=== PATIENT | female | born 1990 | race Caucasian/White ===

== ENCOUNTER 2018-07-24 08:09 | Observation (INO) ==
[2018-07-24 09:43] LABS: Mean Cell Volume 93.8 fl (78-100); Mean Corpuscular Hemoglobin 31.3 pg (27-31); Mean Corpuscular Hgb Conc 33.3 g/dl (32-36); Mean Platelet Volume 9.5 fl (8-12.5); Neutrophil # 7.6 K/mm3 (1.3-6.0); Neutrophil % 74.9 % (42-75.0); Platelet Count 188 K/mm3 (150-450); Red Blood Count 3.84 M/mm3 (4.2-5.4); Red Cell Distribution Width 13.3 % (11.5-14.0); White Blood Count 10.1 K/mm3 (4.0-10.5)
[2018-07-24 09:51] LABS: Cocaine Ur Negative (NEGATIVE); Urine Barbiturate Negative (NEGATIVE); Urine Benzodiazepines Negative (NEGATIVE); Urine Opiates Negative (NEGATIVE); Urine PCP Negative (NEGATIVE); Urine THC Negative (NEGATIVE)
[2018-07-24 09:56] LABS: Albumin * 2.7 gm/dl (3.4-5.0); Anion Gap 11.2 mmol/L (6.8-13.8); BUN/Creatinine Ratio 20.8 (9.0-21.6); Bilirubin, Total 0.3 mg/dL (0.0-1.1); Ca. Corrected For Albumin 9.3 mg/dL (8.4-10.2); Calcium * 8.6 mg/dL (7.9-10.9); Carbon Dioxide 25.5 mmol/L (24-32.6); Potassium 3.7 mmol/L (3.4-4.6); Total Protein 6.9 gm/dL (6.2-8.2)
[2018-07-24 10:09] LABS: Random Urine Total Protein Less than 6.0 mg/dL (0-12)
[2018-07-24 10:34] LABS: Urine Appearance Clear (CLEAR); Urine Bilirubin Negative (NEGATIVE); Urine Blood Negative /ul (NEGATIVE); Urine Color Yellow; Urine Ketone Negative (NEGATIVE)
[2018-07-24 10:35] LABS: Urine Nitrite Negative (NEGATIVE); Urine Protein Negative (NEGATIVE); Urine Specific Gravity 1.005 SP.GR. (1.005-1.010); Urine Urobilinogen Normal (NORMAL)
[2018-07-24 10:36] LABS: Urine Bacteria None Seen; Urine RBC None Seen /hpf (0-5); Urine WBC None Seen /hpf (0-5)
--- NOTE | 2018-07-24 11:22 | HP ---
Chief Complaint - Chief Complaint Date of Service: 07/24/18 Time of Service: 11:05 Chief Complaint: vaginal spotting History of Present Illness: Pt is a 28y/o @ 30.4 wks that had spotting while at work today. She denies recent intercourse, contractions, headache, blurry vision, epigastric pain, edema. Her has been complicated by CHTN noted by elevated BP's at her 8wk visit and 13 wk visit. Medical History (Last Reviewed 07/24/18 @ 08:18 by Desi Gonzalez RN) No significant past medical history Surgical History: Surgical History (Last Reviewed 07/24/18 @ 08:18 by Desi Gonzalez RN) History of tonsillectomy Onset Date: ~2004 Loss of teeth due to extraction Onset Date: ~09/2017 Family History: Family History (Last Reviewed 07/24/18 @ 08:18 by Desi Gonzalez RN) Mother Anxiety Bipolar disorder Ovarian cyst Hypertension Thyroid disease Father Unknown family medical history Grandmother Cancer maternal- ovarian cancer Social History: Preferred Language Malian Smoking Status Former smoker Have you smoked in the past 12 Yes months Do you dip or chew tobacco No Alcohol Use none Drug Use none (Last Updated 07/11/18 @ 16:55 by Aydee Augustin MD) No Social History Section defined Review Of Systems (GEN) - Review of Systems EENTM: Present: No Symptoms Reported Respiratory: Present: No Symptoms Reported Cardiac: Present: No Symptoms Reported Abdominal: Present: No Symptoms Reported, Other - active movement Genitourinary: Present: No Symptoms Reported Musculoskeletal: Present: No Symptoms Reported Neurological: Present: No Symptoms Reported Skin: Present: No Symptoms Reported Endocrine: Present: No Symptoms Reported Immunizations: IMMUNIZATION HX Immunizations Up to Date Yes History of Influenza Vaccine Yes Hx Pneumococcal Vaccination No Allergies/Adverse Reactions: Allergies Allergy/AdvReac Type Severity Reaction Status Date / Time Penicillins Allergy Hives Verified 07/24/18 08:18 shellfish derived Allergy Swelling Verified 07/24/18 08:18 of Throat Home Medications: HOME MEDICATIONS acetaminophen 325 mg capsule 325 mg PO Q6H PRN 02/16/18 [Last Taken 07/24/18 06:45] diphenhydramine 25 mg capsule 25 mg PO HS PRN 02/16/18 [Last Taken 07/23/18 19:00] vitamin,calcium,gotnmfxf-zpfi-wzxry acid tablet 1 tab PO DAILY 02/16/18 [Last Taken 07/23/18 19:00] Exam - Exam Vital Signs: Vital Signs - Last Taken Temp 36.7 C 07/24/18 08:40 Pulse 91 07/24/18 08:40 Resp 18 07/24/18 08:40 BP 176/85 H 07/24/18 08:40 Pulse Ox 93 07/24/18 08:40 Constitutional: Present: Alert, Oriented x3, Cooperative, Well developed, No distress, Morbidly obese Neck: Present: non-tender, full range of motion, supple Back Exam: Present: normal inspection Respiratory: Present: chest non-tender, lungs clear, normal breath sounds, no respiratory distress Cardiovascular/Chest: Present: normal peripheral pulses, regular rate, rhythm, no edema Abdomen: Present: Normal bowel sounds, soft, nontender, nondistended, no rebound tenderness, obese /Rectal: Present: External genitalia normal, Other - no blood noted Extremity: Present: non-tender, no calf tenderness, lower extremity edema, swelling Neurologic: Present: no motor/sensory deficits, alert, normal mood/affect, oriented x 3 Appearance: Present: appropriate appearance, appropriate insight, neat Eye contact: Present: cooperative, good eye contact, normal speech Thoughts: Present: normal thought pattern Diagnostic Studies: Abnormal Lab Results 07/24/18 07/24/18 07/24/18 Range/Units 09:38 09:38 09:38 RBC 3.84 L (4.2-5.4) M/mm3 Hgb 12.0 L (12.5-16.0) gm/dL Hct 36.0 L (37.0-47.0) % MCH 31.3 H (27-31) pg Immature Gran % (Auto) 0.60 H (0.001-0.429) % Immature Gran # (Auto) 0.06 H (0.000-0.0310) K/mm3 Lymphocytes % 16.3 L (20-51) % Neutrophils # 7.6 H (1.3-6.0) K/mm3 Est GFR (Non-Af Amer) 165 H (60-130) mL/min ALT 95 H (19-67) U/L Albumin 2.7 L (3.4-5.0) gm/dl Ur Random Creatinine 3.4 L (60-200) mg/dL U [place] Prot/Creat Ratio 1765 H (0-199) mg/gm Laboratory Results WBC 10.1 K/mm3 (4.0-10.5) 07/24/18 09:38 RBC 3.84 M/mm3 (4.2-5.4) L 07/24/18 09:38 Hgb 12.0 gm/dL (12.5-16.0) L 07/24/18 09:38 Hct 36.0 % (37.0-47.0) L 07/24/18 09:38 MCV 93.8 fl (78-100) 07/24/18 09:38 MCH 31.3 pg (27-31) H 07/24/18 09:38 MCHC 33.3 g/dl (32-36) 07/24/18 09:38 RDW 13.3 % (11.5-14.0) 07/24/18 09:38 Plt Count 188 K/mm3 (150-450) 07/24/18 09:38 MPV 9.5 fl (8-12.5) 07/24/18 09:38 Immature Gran % (Auto) 0.60 % (0.001-0.429) H 07/24/18 09:38 Immature Gran # (Auto) 0.06 K/mm3 (0.000-0.0310) H 07/24/18 09:38 Neutrophils % 74.9 % (42-75.0) 07/24/18 09:38 Lymphocytes % 16.3 % (20-51) L 07/24/18 09:38 Monocytes % 7.7 % (0.0-9) 07/24/18 09:38 Eosinophils % 0.1 % (0.0-3.0) 07/24/18 09:38 Basophils % 0.4 % (0.0-1.0) 07/24/18 09:38 Nucleated RBC % 0.0 k/mm3 (0-1) 07/24/18 09:38 Neutrophils # 7.6 K/mm3 (1.3-6.0) H 07/24/18 09:38 Lymphocytes # 1.64 k/mm3 (1.5-3.5) 07/24/18 09:38 Monocytes # 0.8 k/mm3 (0.0-1.0) 07/24/18 09:38 Eosinophils # 0.0 k/mm3 (0.0-0.7) 07/24/18 09:38 Absolute Basophils 0.0 k/mm3 (0.0-0.1) 07/24/18 09:38 Sodium 136 mmol/L (132-142) 07/24/18 09:38 Plasma Sodium 136 mmol/L (130-142) 07/24/18 09:38 Potassium 3.7 mmol/L (3.4-4.6) 07/24/18 09:38 Chloride 103 mmol/L (97-106) 07/24/18 09:38 Carbon Dioxide 25.5 mmol/L (24-32.6) 07/24/18 09:38 Anion Gap 11.2 mmol/L (6.8-13.8) 07/24/18 09:38 BUN 10 mg/dL (3-23) 07/24/18 09:38 Creatinine 0.48 mg/dL (0.4-1.4) 07/24/18 09:38 Est GFR (Non-Af Amer) 165 mL/min (60-130) H 07/24/18 09:38 BUN/Creatinine Ratio 20.8 (9.0-21.6) 07/24/18 09:38 Random Glucose 77 mg/dL (70-110) 07/24/18 09:38 Calcium 8.6 mg/dL (7.9-10.9) 07/24/18 09:38 Calcium Adj for Albumin 9.3 mg/dL (8.4-10.2) 07/24/18 09:38 Total Bilirubin 0.3 mg/dL (0.0-1.1) 07/24/18 09:38 AST 38 U/L (0-48) 07/24/18 09:38 ALT 95 U/L (19-67) H 07/24/18 09:38 Alkaline Phosphatase 88 U/L (50-170) 07/24/18 09:38 Total Protein 6.9 gm/dL (6.2-8.2) 07/24/18 09:38 Albumin 2.7 gm/dl (3.4-5.0) L 07/24/18 09:38 Urine Color Yellow 07/24/18 10:12 Urine Appearance Clear (CLEAR) 07/24/18 10:12 Urine pH 7.0 pH (5.0-7.0) 07/24/18 10:12 Ur Specific [place] 1.005 SP.GR. (1.005-1.010) 07/24/18 10:12 Urine Protein Negative mg/dL (NEGATIVE) 07/24/18 10:12 Urine Glucose (UA) Negative mg/dL (NEGATIVE) 07/24/18 10:12 Urine Ketones Negative mg/dL (NEGATIVE) 07/24/18 10:12 Urine Blood Negative /ul (NEGATIVE) 07/24/18 10:12 Urine Nitrate Negative (NEGATIVE) 07/24/18 10:12 Urine Bilirubin Negative mg/dl (NEGATIVE) 07/24/18 10:12 Urine Urobilinogen Normal EU/dl (NORMAL) 07/24/18 10:12 Ur Leukocyte Esterase Negative /ul (NEGATIVE) 07/24/18 10:12 Urine RBC None seen /hpf (0-5) 07/24/18 10:12 Urine WBC None seen /hpf (0-5) 07/24/18 10:12 Ur Epithelial Cells 0-5 /hpf (0-5) 07/24/18 10:12 Urine Bacteria None seen (NONE) 07/24/18 10:12 Ur Random Creatinine 3.4 mg/dL (60-200) L 07/24/18 09:38 U Random Total Protein Less than 6.0 mg/dL (0-12) 07/24/18 09:38 U [place] Prot/Creat Ratio 1765 mg/gm (0-199) H 07/24/18 09:38 Urine Opiates Screen Negative (NEGATIVE) 07/24/18 09:38 Barbiturate Screen Negative (NEGATIVE) 07/24/18 09:38 Ur Phencyclidine Scrn Negative (NEGATIVE) 07/24/18 09:38 Urine Amphetamine Negative (NEGATIVE) 07/24/18 09:38 U Benzodiazepines Scrn Negative (NEGATIVE) 07/24/18 09:38 Urine Cocaine Screen Negative (NEGATIVE) 07/24/18 09:38 Urine Marijuana (THC) Negative (NEGATIVE) 07/24/18 09:38 Assessment/Plan - Assessment/Plan (1) Problem: Acute (2) Chronic hypertension Problem: Acute (3) Elevated blood pressure affecting in third trimester, antepartum Assessment: Labs reviewed and elevated Pr/cr ratio and LFTs, otherwise normal. Rh positive. Pt is asymptomatic but concerned for superimposed preeclampsia. Plan to keep observation, obtain 24hr urine protein, serial labs and blood pressures. If BP's continue to be elevated, will start antihypertensives. If severe features, then will start magnesium sulfate, give betamethasone, and transfer to [facility] due to NICU. Pt has US tomorrow, and will either have her go over to radiology for scan or have them come to the birthplace to do the scan. All questions and concerns were addressed. Continue close monitoring. Problem: Acute (4) 30 weeks gestation of Problem: Acute
[2018-07-24 21:12] VITALS: BP 118/67
[2018-07-24 21:44] LABS: Hematocrit 34.8 % (37.0-47.0); Hemoglobin 11.9 gm/dL (12.5-16.0); Mean Cell Volume 92.8 fl (78-100); Mean Corpuscular Hemoglobin 31.7 pg (27-31); Mean Corpuscular Hgb Conc 34.2 g/dl (32-36); Mean Platelet Volume 9.7 fl (8-12.5); Neutrophil # 6.9 K/mm3 (1.3-6.0); Neutrophil % 69.4 % (42-75.0); Platelet Count 199 K/mm3 (150-450); Red Blood Count 3.75 M/mm3 (4.2-5.4); Red Cell Distribution Width 13.4 % (11.5-14.0); White Blood Count 9.9 K/mm3 (4.0-10.5)
[2018-07-24 22:02] LABS: Albumin * 2.5 gm/dl (3.4-5.0); Anion Gap 11.7 mmol/L (6.8-13.8); BUN/Creatinine Ratio 20.9 (9.0-21.6); Bilirubin, Total 0.5 mg/dL (0.0-1.1); Ca. Corrected For Albumin 9.4 mg/dL (8.4-10.2); Calcium * 8.5 mg/dL (7.9-10.9); Carbon Dioxide 23.8 mmol/L (24-32.6); Potassium 3.5 mmol/L (3.4-4.6); Total Protein 6.5 gm/dL (6.2-8.2)
[2018-07-25 09:46] LABS: Albumin * 2.5 gm/dl (3.4-5.0); Bilirubin, Total 0.6 mg/dL (0.0-1.1); Ca. Corrected For Albumin 9.2 mg/dL (8.4-10.2); Calcium * 8.3 mg/dL (7.9-10.9); Carbon Dioxide 24.6 mmol/L (24-32.6); Potassium 3.6 mmol/L (3.4-4.6); Total Protein 6.5 gm/dL (6.2-8.2)
[2018-07-25 09:58] LABS: Hematocrit 36.1 % (37.0-47.0); Hemoglobin 11.9 gm/dL (12.5-16.0); Mean Cell Volume 93.5 fl (78-100); Mean Corpuscular Hemoglobin 30.8 pg (27-31); Mean Platelet Volume 9.9 fl (8-12.5); Platelet Count 183 K/mm3 (150-450); Red Blood Count 3.86 M/mm3 (4.2-5.4); Red Cell Distribution Width 13.6 % (11.5-14.0); White Blood Count 7.9 K/mm3 (4.0-10.5)
--- NOTE | 2018-07-25 09:58 | PN ---
Subjective - Date and Time Seen Date: 07/25/18 Time: 09:51 Subjective Narrative: Pt denies TORRE, visual changes or abdominal pain Objective Objective Narrative: See vital signs - Review of Systems Generalized/Overall Review: Reports: No Symptoms Reported Misc: All systems neg except as marked - Vitals Vitals: Last Vital Signs Temp 36.7 C 07/24/18 08:40 Pulse 100 07/24/18 21:10 Resp 16 07/24/18 21:10 BP 118/67 07/24/18 21:10 Pulse Ox 97 07/24/18 21:10 - Abnormal Lab Findings Abnormal Lab Findings: Abnormal Lab Results 07/24/18 07/24/18 07/24/18 Range/Units 09:38 09:38 21:43 RBC 3.75 L (4.2-5.4) M/mm3 Hgb 11.9 L (12.5-16.0) gm/dL Hct 34.8 L (37.0-47.0) % MCH 31.7 H (27-31) pg Immature Gran % (Auto) 0.60 H (0.001-0.429) % Immature Gran # (Auto) 0.06 H (0.000-0.0310) K/mm3 Neutrophils # 6.9 H (1.3-6.0) K/mm3 Carbon Dioxide (24-32.6) mmol/L Est GFR (Non-Af Amer) 165 H (60-130) mL/min ALT 95 H (19-67) U/L Albumin 2.7 L (3.4-5.0) gm/dl Ur Random Creatinine 3.4 L (60-200) mg/dL U [place] Prot/Creat Ratio 1765 H (0-199) mg/gm 07/24/18 Range/Units 21:43 RBC (4.2-5.4) M/mm3 Hgb (12.5-16.0) gm/dL Hct (37.0-47.0) % MCH (27-31) pg Immature Gran % (Auto) (0.001-0.429) % Immature Gran # (Auto) (0.000-0.0310) K/mm3 Neutrophils # (1.3-6.0) K/mm3 Carbon Dioxide 23.8 L (24-32.6) mmol/L Est GFR (Non-Af Amer) 187 H (60-130) mL/min ALT 103 H (19-67) U/L Albumin 2.5 L (3.4-5.0) gm/dl Ur Random Creatinine (60-200) mg/dL U [place] Prot/Creat Ratio (0-199) mg/gm - Exam Constitutional: Present: Alert, Oriented x3, Cooperative Abdomen: Present: soft, nontender, nondistended Extremity: Present: non-tender, no calf tenderness Skin Exam: Present: normal color, warm/dry, no cyanosis Appearance: Present: appropriate appearance Eye contact: Present: cooperative Thoughts: Present: normal thought pattern Assessment/Plan Plan Narrative: 28 yo @ 30w 5d who was admitted for observation due to elevated BPs. The patient meets the criteria for pre-eclampsia as she has elevated BPs 4 hours apart and she has a significant increase from her baseline proteinuria. For this reason she does not need a 24 hour collection as she has already met the criteria and given that the episodes of proteinuria in pre-eclampsia vary according to when they urine is collected a normal 24 hour collection would not rule out pre-eclampsia. Given this diagnosis the patient needs to be seen twice weekly for antepartum testing. Twice weekly NST and once weekly MURIEL. The patient needs to stop working. Keep appointment for [facility] US today at 1100. NST reactive Follow-up for NST on Pre-eclampsia precautions given The patient was instructed to buy a BP cuff and to check her BP at home and report SBP > 160 or DBP > 110
--- NOTE | 2018-08-02 09:44 | DS ---
(1) Pre-eclampsia complicating hypertension Problem: Acute Description of Stay: The patient is a 28 year old who was admitted due to elevated blood pressures to rule out pre-eclampsia. She met the criteria for pre-eclampsia based on two elevated blood pressures 4 hours apart as well as proteinuria in the pre-eclampsia range. She was asymptomatic throughout her hospital stay. She was discharged home and instructed to follow up in the office for twice weekly testing. Procedures Performed: none Results and Findings: Lab Pending Results 07/24/18 09:38: WBC 10.1, RBC 3.84 L, Hgb 12.0 L, Hct 36.0 L, MCV 93.8, MCH 31.3 H, MCHC 33.3, RDW 13.3, Plt Count 188, MPV 9.5, Immature Gran % (Auto) 0.60 H, Immature Gran # (Auto) 0.06 H, Neutrophils % 74.9, Lymphocytes % 16.3 L, Monocytes % 7.7, Eosinophils % 0.1, Basophils % 0.4, Nucleated RBC % 0.0, Neutrophils # 7.6 H, Lymphocytes # 1.64, Monocytes # 0.8, Eosinophils # 0.0, Absolute Basophils 0.0 07/24/18 09:38: Sodium 136, Plasma Sodium 136, Potassium 3.7, Chloride 103, Carbon Dioxide 25.5, Anion Gap 11.2, BUN 10, Creatinine 0.48, Est GFR (Non-Af Amer) 165 H, BUN/Creatinine Ratio 20.8, Random Glucose 77, Calcium 8.6, Calcium Adj for Albumin 9.3, Total Bilirubin 0.3, AST 38, ALT 95 H, Alkaline Phosphatase 88, Total Protein 6.9, Albumin 2.7 L 07/24/18 09:38: Ur Random Creatinine 3.4 L, U Random Total Protein Less than 6.0, U [place] Prot/Creat Ratio 1765 H 07/24/18 09:38: Urine Opiates Screen Negative, Barbiturate Screen Negative, Ur Phencyclidine Scrn Negative, Urine Amphetamine Negative, U Benzodiazepines Scrn Negative, Urine Cocaine Screen Negative, Urine Marijuana (THC) Negative 07/24/18 10:12: Urine Color Yellow, Urine Appearance Clear, Urine pH 7.0, Ur Specific [place] 1.005, Urine Protein Negative, Urine Glucose (UA) Negative, Urine Ketones Negative, Urine Blood Negative, Urine Nitrate Negative, Urine Bilirubin Negative, Urine Urobilinogen Normal, Ur Leukocyte Esterase Negative, Urine RBC None seen, Urine WBC None seen, Ur Epithelial Cells 0-5, Urine Bacteria None seen 07/24/18 21:43: WBC 9.9, RBC 3.75 L, Hgb 11.9 L, Hct 34.8 L, MCV 92.8, MCH 31.7 H, MCHC 34.2, RDW 13.4, Plt Count 199, MPV 9.7, Immature Gran % (Auto) 0.60 H, Immature Gran # (Auto) 0.06 H, Neutrophils % 69.4, Lymphocytes % 21.0, Monocytes % 8.7, Eosinophils % 0.1, Basophils % 0.2, Nucleated RBC % 0.0, Neutrophils # 6.9 H, Lymphocytes # 2.08, Monocytes # 0.9, Eosinophils # 0.0, Absolute Basophils 0.0 07/24/18 21:43: Sodium 135, Plasma Sodium 135, Potassium 3.5, Chloride 103, Carbon Dioxide 23.8 L, Anion Gap 11.7, BUN 9, Creatinine 0.43, Est GFR (Non-Af Amer) 187 H, BUN/Creatinine Ratio 20.9, Random Glucose 98, Calcium 8.5, Calcium Adj for Albumin 9.4, Total Bilirubin 0.5, AST 46, ALT 103 H, Alkaline Phosphatase 84, Total Protein 6.5, Albumin 2.5 L 07/25/18 09:25: WBC 7.9 D, RBC 3.86 L, Hgb 11.9 L, Hct 36.1 L, MCV 93.5, MCH 30.8, MCHC 33.0, RDW 13.6, Plt Count 183, MPV 9.9, Immature Gran % (Auto) 0.50 H, Immature Gran # (Auto) 0.04 H, Neutrophils % 76.0 H, Lymphocytes % 16.4 L, Monocytes % 6.7, Eosinophils % 0.1, Basophils % 0.3, Nucleated RBC % 0.0, Neutrophils # 6.0, Lymphocytes # 1.30 L, Monocytes # 0.5, Eosinophils # 0.0, Absolute Basophils 0.0 07/25/18 09:25: Sodium 135, Plasma Sodium 135, Potassium 3.6, Chloride 102, Carbon Dioxide 24.6, Anion Gap 12.0, BUN 6, Creatinine 0.43, Est GFR (Non-Af Amer) 187 H, BUN/Creatinine Ratio 14.0, Random Glucose 93, Calcium 8.3, Calcium Adj for Albumin 9.2, Total Bilirubin 0.6, AST 48, ALT 108 H, Alkaline Phosphatase 85, Total Protein 6.5, Albumin 2.5 L Discharge Location: Home Disposition: Home self-care Condition: Good Discharge Activity: Activity as tolerated Discharge Diet: General/regular food Referrals: Jhoan Coleman MD [Primary Care Provider] - Complete Home Medications List: Complete Home Medication List: acetaminophen 325 mg capsule 325 mg PO Q6H PRN 02/16/18 diphenhydramine 25 mg capsule 25 mg PO HS PRN 02/16/18 vitamin,calcium,llisonlp-tlvp-fahxx acid tablet 1 tab PO DAILY 02/16/18
== END 2018-07-25 10:40 | disposition home or self-care (01) ==
LOC: ER 08:09 → OB 08:20 → OBCLINIC 08:20
PROVIDERS: ADMIT Obstetrics & Gynecology Gynecologic Oncology; ATTEND Obstetrics & Gynecology Gynecologic Oncology
DX: O11.9 Pre-existing hypertension with pre-eclampsia, unspecified trimester
CPT/HCPCS: 36415; 59025; 80053; 80307; 81001; 82570; 84155; 84156; 85025; G0378

== ENCOUNTER 2018-09-07 11:32 | Inpatient (IN) ==
[2018-09-07] MEDS ORDERED: RINGER'S SOLUTION,LACTATED 1,000 ML IV ONE (18:06)
[2018-09-07] MEDS ORDERED: NALBUPHINE HCL 10 MG/ML AMPUL IV PRN ×2 (18:06)
[2018-09-07] MEDS ORDERED: LIDOCAINE HCL 50 ML VIAL PERI PRN (18:06)
[2018-09-07] MEDS ORDERED: OXYTOCIN/DEXTROSE 5%-WATER 30 UNITS/500 ML BAG IV ONE (18:06)
[2018-09-07 18:22] LABS: Hemoglobin 12.7 gm/dL (12.5-16.0); Mean Cell Volume 92.2 fl (78-100); Mean Corpuscular Hemoglobin 30.8 pg (27-31); Mean Corpuscular Hgb Conc 33.4 g/dl (32-36); Mean Platelet Volume 9.8 fl (8-12.5); Neutrophil # 9.2 K/mm3 (1.3-6.0); Platelet Count 228 K/mm3 (150-450); Red Blood Count 4.12 M/mm3 (4.2-5.4); Red Cell Distribution Width 13.2 % (11.5-14.0)
[2018-09-07 18:37] LABS: Albumin * 2.4 gm/dl (3.4-5.0); Anion Gap 12.6 mmol/L (6.8-13.8); BUN/Creatinine Ratio 16.4 (9.0-21.6); Bilirubin, Total 0.3 mg/dL (0.0-1.1); Ca. Corrected For Albumin 9.3 mg/dL (8.4-10.2); Calcium * 8.3 mg/dL (7.9-10.9); Carbon Dioxide 24.4 mmol/L (24-32.6); Total Protein 6.6 gm/dL (6.2-8.2)
[2018-09-07] MEDS: MISOPROSTOL 100 MCG TABLET VG PRN (19:32)
[2018-09-07] MEDS: VANCOMYCIN HCL 1 GM in DEXTROSE 5 % IN WATER 250 ML IV SCH ×2 (20:09)
[2018-09-07 20:21] LABS: Cocaine Ur Negative (NEGATIVE); Urine Barbiturate Negative (NEGATIVE); Urine Benzodiazepines Negative (NEGATIVE); Urine Opiates Negative (NEGATIVE); Urine PCP Negative (NEGATIVE); Urine THC Negative (NEGATIVE)
[2018-09-08] MEDS: MISOPROSTOL 100 MCG TABLET VG PRN (02:06)
[2018-09-08] MEDS: VANCOMYCIN HCL 1 GM in DEXTROSE 5 % IN WATER 250 ML IV SCH ×4 (08:09→19:38)
--- NOTE | 2018-09-08 10:59 | HP ---
Chief Complaint - Chief Complaint Date of Service: 09/08/18 Time of Service: 09:00 Chief Complaint: Induction of labor History of Present Illness: The patient presents for an induction of labor for superimposed pre-eclamspia. She reports ctx on pitocin. She denies vb or lof. Fetus is active. Pt denies TORRE, visual changes or abdominal pain. No other complaints Medical History (Updated 09/08/18 @ 10:56 by Aydee Augustin MD) Chronic hypertension No significant past medical history Surgical History: Surgical History (Updated 08/02/18 @ 09:44 by Aydee Augustin MD) History of tonsillectomy Onset Date: ~2004 Loss of teeth due to extraction Onset Date: ~09/2017 Family History: Family History (Updated 02/16/18 @ 14:19 by Juani Presley CMA) Mother Anxiety Bipolar disorder Ovarian cyst Hypertension Thyroid disease Father Unknown family medical history Grandmother Cancer maternal- ovarian cancer Social History: Preferred Language Syrian Smoking Status Former smoker (Last Updated 09/05/18 @ 14:55 [facility] No Social History Section defined Review Of Systems (GEN) - Review of Systems Generalized/Overall Review: Present: No Symptoms Reported Misc: All systems neg except as marked Immunizations: IMMUNIZATION HX Immunizations Up to Date Yes History of Influenza Vaccine Yes Hx Pneumococcal Vaccination No Allergies/Adverse Reactions: Allergies Allergy/AdvReac Type Severity Reaction Status Date / Time Penicillins Allergy Hives Verified 09/07/18 20:52 shellfish derived Allergy Swelling Verified 09/07/18 20:52 of Throat Home Medications: HOME MEDICATIONS acetaminophen 325 mg capsule 325 mg PO Q6H PRN 02/16/18 [Last Taken 07/24/18 06:45] diphenhydramine 25 mg capsule 25 mg PO HS PRN 02/16/18 [Last Taken 07/23/18 19:00] vitamin,calcium,zehjnxtf-pmvx-lbico acid tablet 1 tab PO DAILY 02/16/18 [Last Taken 07/23/18 19:00] blood sugar diagnostic strips See Dose Instructions .ROUTE .MEDSUPPLY #100 ea 08/18/18 [Last Taken Unknown] blood-glucose meter kit See Dose Instructions .ROUTE .MEDSUPPLY #1 ea 08/18/18 [Last Taken Unknown] lancets 33 gauge See Dose Instructions .ROUTE .MEDSUPPLY #100 ea 08/18/18 [Last Taken Unknown] Exam - Exam Vital Signs: Vital Signs - Last Taken Temp 36.8 C 09/07/18 18:20 Pulse 101 H 09/07/18 18:20 Resp 16 09/07/18 18:20 BP 143/84 H 09/07/18 18:20 Pulse Ox 99 09/07/18 18:20 Constitutional: Present: Alert, Oriented x3, Cooperative Respiratory: Present: lungs clear, normal breath sounds Cardiovascular/Chest: Present: regular rate, rhythm, no murmur Abdomen: Present: soft, nontender, nondistended /Rectal: Present: Other - cvx 2/50/-2 AROM for clear fluid Extremity: Present: non-tender, no calf tenderness, pedal edema Skin Exam: Present: normal color, warm/dry, no cyanosis Appearance: Present: appropriate appearance Eye contact: Present: cooperative Thoughts: Present: normal thought pattern Diagnostic Studies: Abnormal Lab Results 09/07/18 09/07/18 Range/Units 18:15 18:15 WBC 12.0 H (4.0-10.5) K/mm3 RBC 4.12 L (4.2-5.4) M/mm3 Immature Gran # (Auto) 0.05 H (0.000-0.0310) K/mm3 Neutrophils % 77.0 H (42-75.0) % Lymphocytes % 16.4 L (20-51) % Neutrophils # 9.2 H (1.3-6.0) K/mm3 Albumin 2.4 L (3.4-5.0) gm/dl Laboratory Results WBC 12.0 K/mm3 (4.0-10.5) H 09/07/18 18:15 RBC 4.12 M/mm3 (4.2-5.4) L 09/07/18 18:15 Hgb 12.7 gm/dL (12.5-16.0) 09/07/18 18:15 Hct 38.0 % (37.0-47.0) 09/07/18 18:15 MCV 92.2 fl (78-100) 09/07/18 18:15 MCH 30.8 pg (27-31) 09/07/18 18:15 MCHC 33.4 g/dl (32-36) 09/07/18 18:15 RDW 13.2 % (11.5-14.0) 09/07/18 18:15 Plt Count 228 K/mm3 (150-450) 09/07/18 18:15 MPV 9.8 fl (8-12.5) 09/07/18 18:15 Immature Gran % (Auto) 0.40 % (0.001-0.429) 09/07/18 18:15 Immature Gran # (Auto) 0.05 K/mm3 (0.000-0.0310) H 09/07/18 18:15 77.0 % (42-75.0) H 09/07/18 18:15 16.4 % (20-51) L 09/07/18 18:15 6.0 % (0.0-9) 09/07/18 18:15 0.0 % (0.0-3.0) 09/07/18 18:15 0.2 % (0.0-1.0) 09/07/18 18:15 Nucleated RBC % 0.0 k/mm3 (0-1) 09/07/18 18:15 9.2 K/mm3 (1.3-6.0) H 09/07/18 18:15 1.96 k/mm3 (1.5-3.5) 09/07/18 18:15 0.7 k/mm3 (0.0-1.0) 09/07/18 18:15 0.0 k/mm3 (0.0-0.7) 09/07/18 18:15 Absolute Basophils 0.0 k/mm3 (0.0-0.1) 09/07/18 18:15 Sodium 134 mmol/L (132-142) 09/07/18 18:15 134 mmol/L (130-142) 09/07/18 18:15 Potassium 4.0 mmol/L (3.4-4.6) 09/07/18 18:15 Chloride 101 mmol/L (97-106) 09/07/18 18:15 Carbon Dioxide 24.4 mmol/L (24-32.6) 09/07/18 18:15 12.6 mmol/L (6.8-13.8) 09/07/18 18:15 BUN 10 mg/dL (3-23) 09/07/18 18:15 0.61 mg/dL (0.4-1.4) 09/07/18 18:15 Est GFR (Non-Af Amer) 125 mL/min (60-130) 09/07/18 18:15 16.4 (9.0-21.6) 09/07/18 18:15 106 mg/dL (70-110) 09/07/18 18:15 Calcium 8.3 mg/dL (7.9-10.9) 09/07/18 18:15 Calcium Adj for Albumin 9.3 mg/dL (8.4-10.2) 09/07/18 18:15 0.3 mg/dL (0.0-1.1) 09/07/18 18:15 AST 16 U/L (0-48) 09/07/18 18:15 ALT 31 U/L (19-67) 09/07/18 18:15 113 U/L (50-170) 09/07/18 18:15 6.6 gm/dL (6.2-8.2) 09/07/18 18:15 2.4 gm/dl (3.4-5.0) L 09/07/18 18:15 Negative (NEGATIVE) 09/07/18 20:04 Negative (NEGATIVE) 09/07/18 20:04 Ur Phencyclidine Scrn Negative (NEGATIVE) 09/07/18 20:04 Urine Amphetamine Negative (NEGATIVE) 09/07/18 20:04 U Benzodiazepines Scrn Negative (NEGATIVE) 09/07/18 20:04 Negative (NEGATIVE) 09/07/18 20:04 Negative (NEGATIVE) 09/07/18 20:04 Blood Type O Positive 09/07/18 18:15 Antibody Screen Negative 09/07/18 18:15 Assessment/Plan - Narrative Narrative: 28 year old @ 37w 1d who presents for medical IOL for superimposed pre- eclamspia. AROM and pitocin. Internals placed due to difficulty monitoring the patient GBS positive: on vancomycin due to no sensitivities ran on GBS culture NST cat 1
--- NOTE | 2018-09-08 13:26 | PN ---
Progess Note - Interim Date: 09/08/18 Time: 13:24 Narrative: 09/08/18 13:24 Called to patient's bedside due to deceleration to the 70s When I arrived at the bedside the deceleration had resolved after turning the pitocin off. cvx is 2.5/50/-2, vertex FHT is now cat 1 Restart pitocin in 30 minutes
[2018-09-08] MEDS ORDERED: ONDANSETRON HCL/PF 2 MG/ML VIAL IV PRN (13:39)
[2018-09-08] MEDS ORDERED: BUPIVACAINE HCL/0.9 % NACL/PF 250 ML EP PRN (13:39)
[2018-09-08] MEDS ORDERED: NALOXONE HCL 1 MG/1 ML SYRG IV PRN (13:39)
[2018-09-08] MEDS ORDERED: fentaNYL CITRATE/PF 50 MCG/ML AMPUL IT SCH (13:45)
[2018-09-08] MEDS: RINGER'S SOLUTION,LACTATED 1,000 ML IV PRN ×2 (14:40→22:25)
--- NOTE | 2018-09-08 14:45 | ANES ---
Anesthesia Pre Procedure Eval Vitals/Labs: Last Vital Signs Temp 36.5 C 09/08/18 14:31 Pulse 106 H 09/08/18 14:31 Resp 22 H 09/08/18 14:31 BP 144/81 H 09/08/18 14:31 Pulse Ox 96 09/08/18 14:31 HOME MEDICATIONS acetaminophen 325 mg capsule 325 mg PO Q6H PRN 02/16/18 [Last Taken 07/24/18 06:45] diphenhydramine 25 mg capsule 25 mg PO HS PRN 02/16/18 [Last Taken 07/23/18 19:00] vitamin,calcium,cpdvered-wkno-wgnyb acid tablet 1 tab PO DAILY 02/16/18 [Last Taken 07/23/18 19:00] blood sugar diagnostic strips See Dose Instructions .ROUTE .MEDSUPPLY #100 ea 08/18/18 [Last Taken Unknown] blood-glucose meter kit See Dose Instructions .ROUTE .MEDSUPPLY #1 ea 08/18/18 [Last Taken Unknown] lancets 33 gauge See Dose Instructions .ROUTE .MEDSUPPLY #100 ea 08/18/18 [Last Taken Unknown] Allergies/Adverse Reactions: Allergies Allergy/AdvReac Type Severity Reaction Status Date / Time Penicillins Allergy Hives Verified 09/07/18 20:52 shellfish derived Allergy Swelling Verified 09/07/18 20:52 of Throat - Planned Procedure Planned Procedure: MEDICAL INDUCTION Medication List Reviewed:: Yes Allergies Verified: Yes Medical History (Updated 09/08/18 @ 10:56 by Aydee Augustin MD) Chronic hypertension No significant past medical history Surgical History (Updated 08/02/18 @ 09:44 by Aydee Augustin MD) History of tonsillectomy Onset Date: ~2004 Loss of teeth due to extraction Onset Date: ~09/2017 Family History (Updated 02/16/18 @ 14:19 by Juani Presley CMA) Mother Anxiety Bipolar disorder Ovarian cyst Hypertension Thyroid disease Father Unknown family medical history Grandmother Cancer maternal- ovarian cancer - Family Anesthesia History Family History:: no untoward family reactions to anesthesia - Airway/Neck/Teeth Teeth Condition: none Neck Exam: limited range of motion Mallampatti Score: 3 Thyromental (T-M) distance: > 6 cm Mandibulo Hyoid distance: > 3 cm - Respiratory Respiratory Physical: lungs clear Smoking Status: Former smoker Sleep Apnea currently treated: No Sleep Apnea by current assessment: No - Cardiovascular Tolerate Activity: Poor Heart Sounds: S1 & S2, Regular - Anesthesia Assessment and Plan ASA Class: PS, III, E Anesthesia Type Plan: Epidural Planned difficult intubation/equipment available: No
--- NOTE | 2018-09-08 14:46 | ANES ---
Post Anesthesia Discharge - Transfer of Care Transfer of Care handoff given to nurse: Yes - Anesthesia Post Op Note Anesthesia Post Op Note: Care transferred to OB RN
--- NOTE | 2018-09-08 14:47 | ANES ---
Post Anesthesia Assessment - Vital Signs Vitals: Last Vital Signs Temp 36.5 C 09/08/18 14:31 Pulse 106 H 09/08/18 14:31 Resp 22 H 09/08/18 14:31 BP 144/81 H 09/08/18 14:31 Pulse Ox 96 09/08/18 14:31 Airway Patency: Normal - Mental Status Level Of Consciousness: Awake - Pain Level Pain Score: 2 - N/V Assessment Nausea/Vomiting Presence: None Dehydration:: No
--- NOTE | 2018-09-08 14:49 | ANES ---
Anesthesia Procedure Note Procedure Note: ANESTHESIA PROCEDURE NOTE Date of Procedure: 09/08/2018 Time of procedure: 1420. Performed by: Gurjit Guadarrama CRNA Senior Category Manager: None. Preprocedure diagnosis: Active labor. Post procedure diagnosis: Same. Procedure: Insertion of labor epidural. Indications: The patient is a 28-year-old prima para female in active labor requesting labor epidural for pain management. Findings: See below. Details of the procedure: The patient was placed in a sitting position. Back was prepped with DuraPrep. Patient was then draped in a sterile fashion. Lidocaine 1% was infiltrated to the skin and subcutaneous tissues at the level of the L3 4 interspace. The epidural space was identified using a 18-gauge Tuohy needle with [id number] technique. 20 mcg fentanyl was given intrathecally using a 27 ga. spinal needle. Epidural catheter was inserted without difficulty. Negative test dose was elicited using 3 mL of 2% preservative-free lidocaine plus epinephrine 1 200,000. The epidural catheter was then taped and secured in place. EBL: Minimal. Fluids: N/A. Specimen: N/A. Post procedure condition: The patient tolerated the procedure well. No complications were noted. Thank you for this consultation. Bryson CRNA
[2018-09-09] MEDS ORDERED: BENZOCAINE/MENTHOL 81 SPRAY CAN TP PRN (03:15)
[2018-09-09] MEDS ORDERED: diphenhydrAMINE HCL 25 MG CAPSULE PO PRN (03:15)
[2018-09-09] MEDS ORDERED: GLYCERIN/WITCH HAZEL LEAF 40 APPL BOX TP PRN (03:15)
[2018-09-09] MEDS ORDERED: OXYTOCIN/DEXTROSE 5%-WATER 30 UNITS/500 ML BAG IV ONE (03:15)
[2018-09-09] MEDS ORDERED: SENNOSIDES 8.6 MG TABLET PO PRN (03:15)
[2018-09-09] MEDS ORDERED: HYDROCORTISONE 30 APPL TUBE TP PRN (03:15)
[2018-09-09] MEDS ORDERED: BISACODYL 10 MG SUPP.RECT RC PRN (03:15)
--- NOTE | 2018-09-09 03:43 | OR ---
Operative Report - Dictated Report Narrative: Date of delivery: 09/09/2017 Time of delivery: 238 Gender: male weight: 3507 grams APGARS: 9/10 Description of the procedure: The patient is a 28 year old @ 37w 1d who was a medical induction of labor due to superimposed pre-eclampsia. The patient was known to be LGA per ultrasound and had polyhydramnios as well. She received cytotec followed by AROM, placement of internal monitors and then pitocin. She progressed to complete dilation. She delivered a viable male over a 2nd degree perineal laceration. Cord clamping was delayed for 60 seconds due to vigorous . The cord was clamped and cut and the infant was handed off to the attending staff. The placenta was delivered by expression and appeared intact. The perineal laceration was repaired in the standard surgical fashion with a 2-0 vicryl. A left labial laceration was noted and repaired with 4-0 vicryl. A left periurethral laceration was noted which was bleeding heavily. A pumper was identified and repaired with 2-0 vicryl. The bleeding continued to be brisk and thus several sutures were placed to control the bleeding taking care to identify the urethra at all times. Two packs of 10 4x4s were used to aid in visualization of the bleeding areas. EBL: 400 mL Lacerations: 2nd degree perineal, left labial and left periurethral Complications: none Specimen: placenta to pathology Definition: * The number of deliveries resulting in a live the patient experienced prior to current hospitalization * The previous delivery of live twins or any live multiple gestation is considered one live event. *If primagravida or nulliparous is documented select zero for the number of previous live births. Live Births: 0
[2018-09-09] MEDS: oxyCODONE HCL/ACETAMINOPHEN 1 TAB TABLET PO PRN ×5 (04:18→22:21)
[2018-09-09] MEDS: IBUPROFEN 800 MG TABLET PO PRN ×3 (04:19→17:31)
[2018-09-09] MEDS: DOCUSATE SODIUM 100 MG CAPSULE PO SCH ×2 (14:48→20:44)
[2018-09-10] MEDS: oxyCODONE HCL/ACETAMINOPHEN 1 TAB TABLET PO PRN ×5 (01:22→19:21)
[2018-09-10] MEDS: IBUPROFEN 800 MG TABLET PO PRN ×3 (04:21→19:22)
--- NOTE | 2018-09-10 08:08 | PN ---
Subjective - Date and Time Seen Date: 09/10/18 Time: 08:06 Subjective Narrative: Pt without complaints Objective Objective Narrative: See vital signs - Review of Systems Generalized/Overall Review: Reports: No Symptoms Reported Misc: All systems neg except as marked - Vitals Vitals: Last Vital Signs Temp 36.1 C 09/10/18 07:15 Pulse 95 09/10/18 07:15 Resp 18 09/10/18 07:15 BP 120/57 09/10/18 07:15 Pulse Ox 100 09/10/18 07:15 - Exam Constitutional: Present: Alert, Oriented x3, Cooperative, No distress Extremity: Present: non-tender, no calf tenderness Skin Exam: Present: normal color, warm/dry, no cyanosis Appearance: Present: appropriate appearance Eye contact: Present: cooperative Thoughts: Present: normal thought pattern Cauti Physician Documentation - Urinary Catheter Management Urethral (Boss) Urethral Indwelling: No Date of Insertion: 09/08/18 Time of Insertion: 15:22 Date of Removal: 09/09/18 Time of Removal: 01:09 Assessment/Plan Plan Narrative: PPD 1 s/p Doing well Discharge tomorrow
[2018-09-10] MEDS: DOCUSATE SODIUM 100 MG CAPSULE PO SCH ×3 (09:01→20:58)
[2018-09-11] MEDS: oxyCODONE HCL/ACETAMINOPHEN 1 TAB TABLET PO PRN ×4 (00:39→13:13)
[2018-09-11] MEDS: IBUPROFEN 800 MG TABLET PO PRN ×2 (04:28→13:13)
--- NOTE | 2018-09-11 09:03 | PN ---
Subjective - Date and Time Seen Date: 09/11/18 Time: 09:02 Subjective Narrative: Pt without complaints Objective Objective Narrative: See vital signs - Review of Systems Generalized/Overall Review: Reports: No Symptoms Reported Misc: All systems neg except as marked - Vitals Vitals: Last Vital Signs Temp 36.6 C 09/11/18 00:40 Pulse 101 H 09/11/18 00:40 Resp 16 09/11/18 00:40 BP 138/61 09/11/18 00:40 Pulse Ox 100 09/11/18 00:40 - Exam Constitutional: Present: Alert, Oriented x3, Cooperative, No distress Abdomen: Present: soft, nontender, nondistended Extremity: Present: non-tender, no calf tenderness, pedal edema Skin Exam: Present: normal color, warm/dry, no cyanosis Appearance: Present: appropriate appearance Eye contact: Present: cooperative Thoughts: Present: normal thought pattern Cauti Physician Documentation - Urinary Catheter Management Urethral (Boss) Urethral Indwelling: No Date of Insertion: 09/08/18 Time of Insertion: 15:22 Date of Removal: 09/09/18 Time of Removal: 01:09 Assessment/Plan Plan Narrative: PPD 2 s/p Doing well Discharge home
[2018-09-11] MEDS: DOCUSATE SODIUM 100 MG CAPSULE PO SCH (09:16)
[2018-09-11 10:44] VITALS: BP 131/61
== END 2018-09-11 14:35 | disposition home or self-care (01) | DRG 806 ==
LOC: OB 17:53
PROVIDERS: ADMIT Obstetrics & Gynecology; ATTEND Obstetrics & Gynecology
CPT/HCPCS: 36415; 59025; 80053; 80307; 85025; 86850; 88307; J2405